=== PATIENT | male | born 1960 | race Caucasian/White ===

== ENCOUNTER 2020-09-29 21:23 | Inpatient (IN) | payer MEDICAID ==
[~2020-09-29] VITALS: Ht 167.6 cm; Wt 63.5 kg
[2020-09-29 21:47] VITALS: Ht 167.6 cm; Wt 63.5 kg
--- NOTE | 2020-09-29 22:29 | NUR ---
PATIENT BROUGHT IN BY EMS WITH REPORT OF AMS AND ETOH. PATIENT IS ORIENTED TO NAME AND , OTHERWISE CONFUSED.
[2020-09-29 23:26] LABS: BASOPHIL % 0.9 % (0-2)
[2020-09-29 23:27] LABS: PLATELET COUNT 78 x10^3mcL (130-400); RED CELL DISTRIBUTION WIDTH 16.6 % (11.5-14.5)
[2020-09-29 23:49] LABS: ALBUMIN 3.5 g/dL (3.4-5.0); ALKALINE PHOSPHATASE 136 U/L (46-116); ALT/SGPT 144 U/L (16-63); AST/SGOT 342 U/L (15-37); CALCIUM 8.5 mg/dL (8.5-10.1); CARBON DIOXIDE 32.7 mmol/L (21-32); CHLORIDE SERUM 99 mmol/L (98-107); CREATININE SERUM 0.9 mg/dL (0.7-1.3); GFR1 > 60 mL/min; GLUCOSE SERUM 204 mg/dL (74-106); LIPASE 690 IU/L (73-393); SODIUM SERUM 143 mmol/L (136-145); TOTAL PROTEIN, SERUM 8.2 g/dL (6.4-8.2)
[2020-09-29 23:52] LABS: POTASSIUM SERUM 2.7 mmol/L (3.5-5.1)
--- NOTE | 2020-09-30 | NUR ---
PATIENT MEDICATED WITH ORAL POTASSIUM FOR LOW POTASSIUM LEVEL.
--- NOTE | 2020-09-30 01:15 | NUR ---
NASAL SWAB WAS DONE FOR COVID AG/NIKHIL.
--- NOTE | 2020-09-30 01:50 | NUR ---
REPORT WAS GIVEN TO OMID. PATIENT TRANSPORTED TO ROOM 246 B.
--- NOTE | 2020-09-30 02:00 | NUR ---
ADMITTED PT FROM ER FOUND ON THE STREET DRUNK AND SOMEONE CALLED [facility] AND C/O CHESTPAIN.PT APPEARS DROWSY BUT AROUSABLE.ANSWERS QUESTIONS APPROPRIATELY.CO 4/10 TO PRESSURE LIKE PAIN POINTING TO HIS L CHEST.PLACED ON TELE MONITOR # 14 WITH READING NSR.BP 118/72 MMHG,HR 96.PT UNKEPT BILATERAL FEET DRY SCALY WITH DRIED DIRT.SMELLS ALCOHOL AND VERBALIZED "ONLY A LITTLE OF VODKA".ADMISSION CARE RENDERED,WILL PLACE ON SEIZURE PRECAUTION.WILL PAD ALL RAILS.BEDALARM ON.WILL CONTINUE TO MONITOR.
--- NOTE | 2020-09-30 02:15 | NUR ---
PATIENT TRANSPORTED TO ROOM 246B. BELONGING LIST COMPLETED. NO CEEL PHONE , HAS A YELLOW/GOLD RING ON THE LEFT HAND.
[2020-09-30 02:23] VITALS: BP 118/72
[2020-09-30 04:32] LABS: UA SPECIFIC GRAVITY 1.025 (1.005-1.035); microscopic required? YES; urine erythrocyte 2+ (NEGATIVE)
--- NOTE | 2020-09-30 04:41 | NUR ---
ON SEIZURE PRECAUTIONS.PADDED RAILS IN PLACED,NO WITHDRAWEL SYMPTOMS NOTED.POTASSIUM CHLORIDE 40 MEQ PO GIVEN AND WELL TOLERATED.DENIES CHESTPAIN ATN THIS TIME,NS @ 100 ML INFUSING .ALL NEEDS MET.BEDALARM ON AT ALL TIMES.WILL CONTINUE TO MONITOR.
[2020-09-30 05:00] LABS: AMPHETAMINE QUAL UR NONE DETECTED (See below)
[2020-09-30 05:15] VITALS: BP 140/89
--- NOTE | 2020-09-30 07:10 | NUR ---
RECEIVED REPORT FROM MARKETING PRODUCER RN. PT IN BED AWAKE, VERBALLY RESPONSIVE WITH DISORIENTATION. ON RA, NO ACUTE RESPIRATORY DISTRESS NOTED. ON TELE 14 NSR 94HR. DENIES CHEST PAIN/PRESSURE AT THIS TIME. IV SITE TO RFA WITH NS AT 100CC/HR. DENIES PAIN OR DISCOMFORT AT THIS TIME. SIDE RAILS UP X2 FOR SAFETY, INSTRUCTED TO USE CALL LIGHT WHEN NEEDED ASSISTANCE. CALL LIGHT WITHIN REACH. WILL CONTINUE TO MONITOR.
[2020-09-30 07:23] LABS: BASOPHIL % 1.7 % (0-2)
[2020-09-30 07:40] LABS: PLATELET COUNT 63 x10^3mcL (130-400); RED CELL DISTRIBUTION WIDTH 16.1 % (11.5-14.5)
[2020-09-30 07:57] LABS: MAGNESIUM 1.6 mg/dL (1.8-2.4); PHOSPHOROUS 1.6 mg/dL (2.5-4.9)
[2020-09-30 07:58] LABS: CHOLESTEROL/HDL RATIO 4.3
[2020-09-30 08:40] LABS: CALCIUM 7.9 mg/dL (8.5-10.1); CARBON DIOXIDE 31.4 mmol/L (21-32); CHLORIDE SERUM 101 mmol/L (98-107); CREATININE SERUM 0.7 mg/dL (0.7-1.3); GFR1 > 60 mL/min; GLUCOSE SERUM 132 mg/dL (74-106); MAGNESIUM 1.6 mg/dL (1.8-2.4); PHOSPHOROUS 1.5 mg/dL (2.5-4.9); SODIUM SERUM 142 mmol/L (136-145)
[2020-09-30 08:42] LABS: BILIRUBIN DIRECT 1.61 mg/dL (0.0-0.2); BILIRUBIN TOTAL 2.2 mg/dL (0.20-1.00); TOTAL PROTEIN, SERUM 6.9 g/dL (6.4-8.2)
[2020-09-30 08:45] LABS: ALBUMIN 3.1 g/dL (3.4-5.0)
[2020-09-30 08:55] VITALS: BP 116/79
[2020-09-30 13:28] VITALS: BP 124/68
[2020-09-30 16:17] VITALS: BP 140/70
--- NOTE | 2020-09-30 18:05 | NUR ---
FOUND PATIENT IN BED WITH IV SITE DISLODGED. PATIENT STATED HE DIDNT KNOW WHAT HAPPENED. DISLODGED IV CATH INTACT. REINSERTED NEW IV SITE TO RFA 20G CONTINUE WITH IV FLUIDS 100CC/HR.
--- NOTE | 2020-09-30 19:25 | NUR ---
PT IN BED AWAKE, ALERT, ABLE TO VERBALIZE NEEDS. ON TELE 14 NSR. DENIES CHEST PAIN/PRESSURE. IV SITE TO RFA WITH NS AT 100CC/HR. NO ACUTE RESPIRATORY DISTRESS. DENIES PAIN OR DISCOMFORT AT THIS TIME. BED IN LOWEST POSITION. CALL LIGHT WITHIN REACH. ENDORSE CARE TO INCOMING RN.
--- NOTE | 2020-09-30 19:50 | NUR ---
PT RECEIVED IN BED, APPEARS TO BE LETHARGIC BUT EASILY AROUSABLE. A/O TO PERSON ONLY, ABLE TO FOLLOW COMMANDS, ABLE TO MAKE NEEDS KNOWN, PT SPEECH CLR. RESP IS EVEN AND UNLABORED, SPO2 100% ON RA, LUNGS SOUNDS CLR BILATERALLY. RADIAL AND PEDAL PULSES PRESENT, NO EDMA NOTED. ON TELE # 14 ST, NO C/O CHEST PAIN. ACTIVE BS PRESENT X4 QUADRANTS, NO C/O NVD. VOIDS FREELY NO DISCOMFORT NOTED. SKIN IS WARM, DRY AND INTACT, IV FOUND ON THE BED, PT STATES HE DONT REMEMBER REMOVING IT. BED TO LOWEST POSITION, CALL LIGHT WITHIN REACH, WILL CONT TO MONITOR PT FOR CHANGES IN CONDITION.
[2020-09-30 20:10] VITALS: BP 122/66
--- NOTE | 2020-09-30 22:22 | NUR ---
PT HAS ELEVATED TEMP AT 100.6 AND HAVING CHILLS, DR. GAYLE MADE AWARE AND REQUESTED TYLENOL. PT PROVIDED COOLING MEASURES.
--- NOTE | 2020-09-30 23:46 | NUR ---
RE-CHECKED TEMP, 99.8. CONT TO PROVIDED PT COOLING MEASURES, CONT TO MONITOR PT FOR CHANGES IN CONDITION.
--- NOTE | 2020-10-01 01:30 | NUR ---
FOUND PT ON THE SIDE OF THE BED KNEELING DOWN, TRYING TO GET BACK ON THE BED. NO IMMEDIATE BODY INJURY, NO BLEEDING NOTED. PT ASSISTED BACK IN BED WITH THE HELP OF 2 RN'S. VS TEMP 100.8, BP 147/83, HR 128, 96% RA RR 22, 0/[address] GAYLE[address] BED TO LOWEST POSITION, CALL LIGHT WITHIN REACH, WILL CONT TO MONIOTR FOR CHANGES IN CONDITION.
--- NOTE | 2020-10-01 01:40 | NUR ---
FUTHER ASSESMENT DONE, PURPLE DISCOLORATION ON LEFT BUTTOCKS AND LEFT HIP NOTED. LEFT ELBOW NOTED WITH SOME REDNESS. PT STATES HE HAS WHITE 10/10 AND FEELS DIZZY. PT MADE COMFORTABLE IN BED, BED TO LOWEST POSITION, CALL LGHT WITHIN REACH, REMINDED THE PT TO USE THE CALL LIGHT IF HELP IS NEEDED. URINAL WITHIN REACH. SPOKE WITH DR. BONILLA AND REPORTED THE INCIDENT.
--- NOTE | 2020-10-01 01:50 | NUR ---
PT SEEN AND EXAMINED BY DR. BONILLA, ALSO MADE AWARE OF PT'S ELEVATED HR AND TEMP.
--- NOTE | 2020-10-01 02:15 | NUR ---
RECEIVED NEW ORDER FOR LEFT HIP XRAY, AND HEAD CT. NEW ORDER NOTED AND ACKNOWLEDGED.
--- NOTE | 2020-10-01 02:32 | NUR ---
PT WENT DOWN TO RADIOLOGY FOR LEFT HIP XRAY AND HEAD CT VIA HOSPITAL BED ACCOMPANIED BY 2 RADIOLOGY STAFF.
--- NOTE | 2020-10-01 03:15 | NUR ---
PT CAME BACK FROM CT AND XRAY. NO C/O PAIN, NO ACUTE DISTRESS NOTED. RESP EVEN AND UNLABORED. PT C/O OF BEING TOO COLD, TEMP ELEVATED AT 100.0. HR 132. CONT TO PROVIDED COOLING MEASURE. WILL CONT TO MONIOTR PT FOR CHANGES IN CONDITION.
--- NOTE | 2020-10-01 05:28 | NUR ---
PT IN BED HAVING C/O CHEST PAIN. VS TAKEN TEMP 100.2, BP 144/90, HR 128, RR 20, 94% ON RA. DR. BONILLA MADE AWARE AND RECEIVED NEW ORDER OF STAT ECG. PT MADE COMFORTABLE IN BED, ADMINISTERED 02 AT 2L VIA NC. WILL CONT TO MONIOTR PT FOR CHANGES IN CONDITION.
[2020-10-01 05:30] VITALS: BP 135/90
--- NOTE | 2020-10-01 06:42 | NUR ---
PT IN BED AWAKE RESTING. NO C/O PAIN, NO ACUTE DISTRESS NOTE. RESP IS EVEN AND UNLABORED, NEEDS ATTENDED AND MET. FREQUENT VISUAL MONITORING RENDERED, CONT ON COOLING MEASURES FOR ELEVATED TEMP OF 100.2. PT'S CHEST PAIN RESOLVED AFTER PROVIDING SUPPELEMENTAL O2 AT 2L VIA NC. HR REMAINED ELEVATED, 115-130'S. DR AWARE OF ELEVATED TEMP AND HR. CONT TO MONITOR AND ENDORSE TO NEXT SHIFT NURSE.
[2020-10-01 06:45] LABS: BASOPHIL % 1.3 % (0-2)
[2020-10-01 07:08] LABS: PLATELET COUNT 43 x10^3mcL (130-400)
--- NOTE | 2020-10-01 07:30 | NUR ---
RECEIVED PT. IN BED A/A/O X2 (PERSON AND PLACE). NO SOB, NO N/V NOTED. PT. DENIES ANY PAIN AT THIS TIME. IVF NS RUNNING AT 100 CC/HR VIA IV SITE AT R HAND. BED IN LOW POS., CALL LIGHT WITHIN REACH. SIDE RAILS UP X3.
[2020-10-01 08:34] VITALS: BP 115/88
[2020-10-01 08:48] LABS: ALKALINE PHOSPHATASE 125 U/L (46-116); ALT/SGPT 119 U/L (16-63); AST/SGOT 303 U/L (15-37); BILIRUBIN TOTAL 3.2 mg/dL (0.20-1.00); CALCIUM 8.5 mg/dL (8.5-10.1); CHLORIDE SERUM 96 mmol/L (98-107); CREATININE SERUM 0.7 mg/dL (0.7-1.3); GFR1 > 60 mL/min; GLUCOSE SERUM 134 mg/dL (74-106); LIPASE 596 IU/L (73-393); MAGNESIUM 1.3 mg/dL (1.8-2.4); PHOSPHOROUS 1.3 mg/dL (2.5-4.9); SODIUM SERUM 139 mmol/L (136-145); TOTAL PROTEIN, SERUM 6.6 g/dL (6.4-8.2)
[2020-10-01 09:17] LABS: ALBUMIN 3.3 g/dL (3.4-5.0)
[2020-10-01 09:20] LABS: POTASSIUM SERUM 2.8 mmol/L (3.5-5.1)
--- NOTE | 2020-10-01 09:30 | NUR ---
REPORTED K (2.8), PO4 (1.3), MG (1.3), AND PLATELET (43) TO DR. ROSEN. NO FURTHER ORDER RECEIVED AT THIS TIME.
--- NOTE | 2020-10-01 09:45 | NUR ---
PT. PULLED OUT IV CATH. AT R HAND. NEW IV SITE RESTARTED AT L FA WITH GAUGE #22.
--- NOTE | 2020-10-01 11:00 | NUR ---
DR. ROSEN WAS MADE AWARE THAT PT.'S H.R. HAS BEEN RANGING FROM 120 TO 130 BPM IN THE LAST 2 HRS. NO FURTHER ORDER RECEIVED AT THIS TIME.
[2020-10-01 15:24] VITALS: BP 126/90
[2020-10-01 16:47] VITALS: BP 123/84
--- NOTE | 2020-10-01 18:18 | NUR ---
REMAINS IN STABLE CONDITION AT THIS TIME. WILL CONTINUE TO MONITOR.
--- NOTE | 2020-10-01 19:20 | NUR ---
RECEIVED PATIENT. PATIENT IS O2 SAT 96%. PATIENT DENIES CHEST PAIN AND DISCOMFORT. PATIENT IS RESTING IN BED. BED IN LOW POSITION AND CALL LIGHT WITHIN REACH.
[2020-10-01 20:20] VITALS: BP 117/81
[2020-10-01 21:06] LABS: CALCIUM 9.5 mg/dL (8.5-10.1); CARBON DIOXIDE 30.6 mmol/L (21-32); CHLORIDE SERUM 96 mmol/L (98-107); CREATININE SERUM 0.7 mg/dL (0.7-1.3); GFR1 > 60 mL/min; GLUCOSE SERUM 173 mg/dL (74-106); POTASSIUM SERUM 3.4 mmol/L (3.5-5.1); SODIUM SERUM 135 mmol/L (136-145)
[2020-10-02] VITALS (9 sets, daily range): BP systolic 103–124; BP diastolic 73–90
--- NOTE | 2020-10-02 03:33 | NUR ---
PATIENT IS RESTING IN BED. PATIENT ATTEMPTED TO REMOVE THE IV LINE. AND LEAVE BED WITHOUT ASSISTANCE. PATIENT IS A&OX2 TO PERSON AND PLACE. PATIENT IS CONFUSED AND DOESN'T FOLLOW INSTRUCTIONS. SEZIURE PERCATIONS ARE IN PLACE. PATIENT IS ANXIOUS AND AGITATED GIVEN 1MG ATIVAN. PATIENT DENIES CHEST PAIN. PATIENT DENIES PAIN AND DISCOMFORT. BED IN LOW POSITION AND CALL LIGHT WITHIN REACH.
--- NOTE | 2020-10-02 03:52 | NUR ---
HR SUSTAINING TO 170'S. PT IN BED ANXIOUS AND DISORIENTED. NO C/O PAIN. DR GAYLE MADE AWARE. STAT EKG ORDERED.
--- NOTE | 2020-10-02 04:20 | NUR ---
METOPROLOL 5 MG IVP GIVEN PER ORDER.
--- NOTE | 2020-10-02 04:37 | NUR ---
HR 140'S AFTER MEDICATION. PT IN BED. DENIES CHEST PAIN OR PRESSURE. DR GAYLE MADE AWARE. ORDERED TO RECHECK HR AND CALL MD AFTER 20 MINUTES.
--- NOTE | 2020-10-02 05:25 | NUR ---
2ND DOSE OF METOPROLOL 5 MG IVP GIVEN PER MD ORDER.
--- NOTE | 2020-10-02 05:25 | NUR ---
1L NS IV BOLUS INFUSING PER ORDER.
--- NOTE | 2020-10-02 06:50 | NUR ---
PT AA&O X2 TO PERSON AND PLACE. REORIENTED TO TIME. PT REMAINS ANXIOUS/RESTLESS. PT CONSTANTLY TRIES TO GET OUT OF BED AND PULL OUT LINES/TUBES. PT IS A FALL RISK. CLOSE MONITORING NEEDED. IV TO LFA, NS INFUSING. SAFETY MEASURES MAINTAINED. ALL NEEDS ATTENDED TO. BED IN LOWEST POSITION. SIDE RAILS UP X2. CALL LIGHT WITHIN REACH. WILL ENDORSE CONTINUITY OF CARE TO ONCOMING RN.
--- NOTE | 2020-10-02 07:30 | NUR ---
RECEIEVED PT IN BED ALERT BUT CONFUSE. REORIENTED, ONLY ORIENTED TO NAME. SPEECH IS GARBLED AT TIMES. UNABLE TO FOLLOW SIMPLE COMMANDS. NOTED WITH EPISODES OF ATTEMPTING TO REMOVE GOWN, IV LINES, AND TELE MONITOR. IV SITE TO LFA WITH NS AT 100CC/HR. ON TELE 14 ST. DENIES CHEST PAIN/PRESSURE. ON RA, NO ACUTE RESPIRATORY DISTRESS. CALL LIGHT WITHIN REACH. WILL CONTINUE TO MONITOR.
[2020-10-02 10:10] LABS: CALCIUM 9.2 mg/dL (8.5-10.1); CARBON DIOXIDE 29.8 mmol/L (21-32); CHLORIDE SERUM 103 mmol/L (98-107); CREATININE SERUM 0.8 mg/dL (0.7-1.3); GFR1 > 60 mL/min; GLUCOSE SERUM 147 mg/dL (74-106); POTASSIUM SERUM 3.4 mmol/L (3.5-5.1); SODIUM SERUM 141 mmol/L (136-145)
[2020-10-02 10:15] LABS: ALKALINE PHOSPHATASE 130 U/L (46-116); ALT/SGPT 118 U/L (16-63); AST/SGOT 282 U/L (15-37); BILIRUBIN TOTAL 3.61 mg/dL (0.20-1.00); TOTAL PROTEIN, SERUM 7.2 g/dL (6.4-8.2)
[2020-10-02 10:34] LABS: BASOPHIL % 0.7 % (0-2)
--- NOTE | 2020-10-02 10:50 | NUR ---
MAKING ROUNDS, MADE AWARE OF PATIENT'S MENTAL STATUS, ELEVATED HR, AND CURRENT VITAL SIGNS. PER , GIVE BOLUS 2L NS THEN MAY START LOPRESSORS WHEN B/P IS STABLE. WILL ADMINISTER ORDERED.
[2020-10-02 11:02] LABS: RED CELL DISTRIBUTION WIDTH 16.2 % (11.5-14.5)
[2020-10-02 11:04] LABS: PLATELET COUNT 68 x10^3mcL (130-400)
--- NOTE | 2020-10-02 12:07 | NUR ---
SEEN BY DR ROSEN AGAIN. RECEIVED ORDER FOR 1 X METOPROL 25 MG NOW. KEEP EVENING DOSE SCHEDULED.
--- NOTE | 2020-10-02 13:00 | NUR ---
ADMINISTERED X1 ORDER OF LOPRESSOR 25MG PO ORDERED. CURRENTLY SUSTAINING 160'S HR/MIN. WILL REEVALUATE. B/P-113/85
--- NOTE | 2020-10-02 14:10 | NUR ---
HR CURRENTLY SUSTAINING AT 140'S. DENIES CHEST PAIN/PRESSURE. REORIENT NEEDED. FREQUENT VISUAL CHECKS DONE.
--- NOTE | 2020-10-02 15:45 | NUR ---
NEW ORDER FROM TO MARCH START BILATERAL SOFT WRIST RESTRAINT D/T CONTINOUS ATTEMPT OF GETTING OUT OF BED AND REMOVING TELE/IV LINES. REORIENTED PT NEEDED, UNABLE TO FOLLOW SIMPLE COMMANDS. ORDERS READ BACK AND VERIFIED, NOTED AND CARRIED OUT.
--- NOTE | 2020-10-02 18:37 | NUR ---
PT IN BED WITH EYES CLOSED MUMBLING. EASILY AROUSABLE WITH VERBAL AND TACTILE STIMULI. CONTINUE WITH BILATERAL SOFT WRIST RESTRAINT FOR PULLING ON TELE MONITOR AND IV LINES. MONITORED SKIN INTEGRITY/CIRCULATION Q2HRS. REORIENTED NEEDED, UNABLE TO FOLLOW COMMANDS. ON TELE 14, SUSTAINING 100'S HR AT REST, DENIES CHEST PAIN/PRESSURE. ON RA, NO ACUTE RESPIRATORY DISTRESS. IV SITE TO LFA WITH SCHEDULED NS FLUID. CALL LIGHT WITHIN REACH. WILL ENDORSE CARE TO INCOMING RN.
--- NOTE | 2020-10-02 19:15 | NUR ---
PATIENT RECEIVED. PATIENT IS RESTING IN BED WITH EYES CLSOED. NO SIGN OF RESP DISTRESS. RR 18 UNLABORED BREATHING, CLEAR LUNG SOUNDS. O2 98% ON ROOM AIR. HR 89. PATIENT RESTRAINTS WITHIN NORMAL LIMITS FOR CIRCULATION. WILL ASSESS RESTRAINTS THROUGHOUT THE SHIFT. BED IN LOW POSITION AND CALL LIGHT WITHIN REACH.
--- NOTE | 2020-10-02 19:30 | NUR ---
PATIENT RECEIVED. PATIENT RESTING IN BED WATCHING TV. PATIENT DENIES PAIN AND DISCOMFORT. PATIENT DENIES CHEST PAIN. BED IN LOW POSITION AND CALL LIGHT WITHIN REACH.
--- NOTE | 2020-10-02 21:30 | NUR ---
PATIENT IS RESTING IN BED EYES CLOSED. NO RESP DISTRESS NOTED, RESTRAINTS ARE RELEASED @2100. CIRCULATION WITH NORMAL LIMITS. BED ALARM IS ON, BED IN LOW POSITION AND CALL LIGHT WITHIN REACH.
--- NOTE | 2020-10-02 22:30 | NUR ---
SCHEDULED PO MEDS NOT GIVEN. PT LETHARGIC. RESPONDS TO TACTILE/PAIN STIMULI. BP 124/90, HR 100, RR 18, O2SAT 96% ON ROOM AIR. DR SHABAZZ MADE AWARE. DR CHANEY ASSESSED THE PT. NO NEW ORDERS AT THIS TIME. WILL CONTINUE TO MONITOR.
--- NOTE | 2020-10-03 02:33 | NUR ---
PATIENT IS RESTING IN BED. NO SIGN OF RESP DISTRESS NOTED. EYES CLOSED. O2 99% ON ROOM AIR. HR 105 SINUS TACHYCARDIA. PATIENT AROUSABLE WITH VERBAL. CALL LIGHT WITHIN REACH AND BED IN LOW POSITION.
[2020-10-03 05:20] VITALS: BP 124/84
--- NOTE | 2020-10-03 05:32 | NUR ---
TEMP 100.3 TYLENOL 650MG GIVEN PO.
--- NOTE | 2020-10-03 06:30 | NUR ---
PATIENT TEMP 100.[address] NO DISTRESS NOTED. WILL ENDOURCE TO AM NURSE. PATIENT IS RESTING IN BED EYES OPEN. BED ALARM IS ON, BED IN LOW POSITION AND CALL LIGHT WITHIN REACH.
--- NOTE | 2020-10-03 06:47 | NUR ---
PATIENT IS RESTING IN BED. A&OX2 TO PERSON AND PLACE. ABLE TO FOLLOW SIMPLE COMMANDS. AROUSABLE WIIH VERBAL. FORGETFUL AT TIMES. INSTRUCTED TO CALL FOR HELP. CALL LIGHT WITHIN REACH AND BED IN LOW POSITION. SIDE RAILS PADDED FOR SEZIURE PRECAUTION IN PLACE. WILL ENDOURCE CARE TO AM NURSE.
[2020-10-03 07:36] VITALS: BP 123/88
--- NOTE | 2020-10-03 09:07 | NUR ---
A/O X4, DENIES WHITE, DIZZINESS, SOB OR PAIN. BREATHING EVEN, UNLABORED, NO ACUTE RESP DISTRESS NOTED. LUNG CTA. PERIPHERAL PULSES PALPABLE. NO EDEMA NOTED. LAST BM 10/01, VOID. IV ACCESS TO LFA SALINE LOCK PATENT. IV TO LH INFUSING 100ML/HR INFUSING WELL, WNL. CALL LIGHT WITHIN REACH. BED AT LOWEST POSITOIN. WILL CONTINUE TO MONITOR
--- NOTE | 2020-10-03 10:00 | NUR ---
PT ALERT AND ORIENTED X3, FOLLOW COMMANDS, INSTRUCTED PT NO PULLING IV OUT, HE VERBALIZED UNDERSTANDING. SOFT RESTRAINTS ON BILATERAL WRISTS REMOVED. RESTRAINTS CIRCULATIONA AND SKIN WNL. CALL LIGHT WITHIN REACH. BED AT LOWEST POSITION. WILL CONTINUE TO MONITOR
[2020-10-03 12:16] VITALS: BP 111/76
--- NOTE | 2020-10-03 15:00 | NUR ---
RESTING WITH EYES CLOSED, NO RESP DISTRESS NOTED. IVF NS INFUSING WELL ON LFA IV SITE.
--- NOTE | 2020-10-03 15:52 | NUR ---
PT RESTING IN BED, BREATHING EVEN, UNLABORED, NO ACUTE RESP DISTRESS NOTED. DENIES PAIN, WHITE, SOB. NS INFUSING TO LW IV ACCESS SITE WNL. CALL LIGHT WITHIN REACH. FEBRILE 102F @ 1400, TYPELOL GIVEN, REASSESS AT 1530 TEMP 97.8. SEIZURE PRECAUTION IN PLACE, WILL CONTINUE TO MONITOR.
[2020-10-03 16:31] VITALS: BP 111/76
--- NOTE | 2020-10-03 17:01 | NUR ---
FEBRILE 100.8 @ 1600, TYLENOL WILL NOT DUE UNTIL 2029, COOLING MEASURE GIVEN AT POSTERIOR NECK AND BILATERAL FLANK. BLOOD CULTURE COMPLETED, NO URINE OUTPUT AT THIS TIME. WILL TRY TO COLLECT URINE FOR UA CULTURE MONAE. BREATHING EVEN AND UNLABORED. NO ACUTE RESP DISTRESS NOTED. LATHERGIC. WILL CONTINUE TO MONITOR
--- NOTE | 2020-10-03 19:00 | NUR ---
PT RESTING IN BED. FEBRILE 100.4, COOLING MEASURE IN PLACE. DENIES PAIN, SOB, BREATHING EVEN, UNLABORED. 2 IV ACCESS TO LH INFUSING NS 100ML TO 24G, 22G SALINE LOCK, PATENT. SAFETY MEASURE IN PLACE, CALL LIGHT WITHIN REACH, BED AT LOWEST POSITION, WILL ENDORSE TO CHARGEBACK ANALYST NURSE
--- NOTE | 2020-10-03 19:41 | NUR ---
I HAVE REVIEWED THE DATA COLLECTION BY RN(NAME):ALYSHA POWERS. ENTERED ON (DATE/TIME):10/03/20 7A-7P. I CONCUR WITH THE DATA AND ANY EXCEPTIONS OR COMMENTS ARE LISTED BELOW:
[2020-10-03 19:59] VITALS: BP 91/64
--- NOTE | 2020-10-03 20:00 | NUR ---
RECEIVED PT IN BED SLEEPING BUT EASILY AROUSABLE, ORIENTED X2, CONFUSED AT TIMES. PT APPEARS TO BE LETHARGIC. TELE 14 SHOWS NSR WITH HR AT 90. DENIES CHEST PAIN. LUNG SOUNDS CLEAR. PT ON 2L O2 VIA N/C. NO RESPIRATORY DISTRESS NOTED. BS ACTIVE IN ALL FOUR QUADS. NO ABD PAIN NOTED. ABD IS OBESE. PT IS VOIDING FREELY WITH URINAL. PEDAL PULSES PALPABLE. NO EDEMA NOTED. GENERALIZED WEAKNESS NOTED. SEIZURE PRECAUTIONS ENFORCED. SKIN IS CDI. IV TO LEFT HAND INFUSING NS AT 100ML/HR, SITE PATENT. SHIFT ASSESSMENT COMPLETED. CALL LIGHT WITHIN REACH. BED IS IN LOWEST POSITION. WILL CONTINUE TO MONITOR CLOSELY.
--- NOTE | 2020-10-04 | NUR ---
PT SLEEPING WELL WITH EYES CLOSED. IVF ONGOING. NO RESPIRATORY DISTRESS NOTED. SEIZURE PRECAUTIONS REMAIN IN PLACE. ALL NEEDS TENDED TO. WILL CONTINUE TO MONITOR CLOSELY.
[2020-10-04 00:13] LABS: microscopic required? NO
[2020-10-04 00:32] LABS: UA SPECIFIC GRAVITY 1.015 (1.005-1.035); urine erythrocyte NEGATIVE (NEGATIVE)
[2020-10-04 05:03] VITALS: BP 128/87
[2020-10-04 07:04] LABS: BASOPHIL % 0.3 % (0-2)
[2020-10-04 07:21] LABS: CARBON DIOXIDE 28.4 mmol/L (21-32); CHLORIDE SERUM 103 mmol/L (98-107); CREATININE SERUM 0.6 mg/dL (0.7-1.3); GFR1 > 60 mL/min; GLUCOSE SERUM 102 mg/dL (74-106); MAGNESIUM 1.5 mg/dL (1.8-2.4); PLATELET COUNT 84 x10^3mcL (130-400); POTASSIUM SERUM 3.2 mmol/L (3.5-5.1); RED CELL DISTRIBUTION WIDTH 17.6 % (11.5-14.5); SODIUM SERUM 139 mmol/L (136-145)
--- NOTE | 2020-10-04 07:30 | NUR ---
PT SLEPT WELL THROUGH OUT THE NIGHT. NO DISTRESS NOTED. ALL DUE MEDS GIVEN ORDERED. CALL LIGHT WITHIN REACH. BED IS IN LOWEST POSITION. REPORT GIVEN TO ELIEZER WHO WILL ASSUME PLAN OF CARE.
--- NOTE | 2020-10-04 08:17 | NUR ---
SEEN RESTING WITH EYES CLOSED, NO RESP DISTRESS NOTED. TELE# [address] HR=99. NO ANY SIGNS OF PAIN. GEN BODY WEAKNESS. ON REGULAR DIET. INCONTINENCE AT TIMES. IVF NS INFUSING WELL AT 100ML/HR ON LT HAND SITE. SEIZURE PRECAUTION MAINTAINED. SIDERAILS UP X2 WITH PADDED UP. WILL CONTINUE TO MONITOR.
[2020-10-04 08:20] VITALS: BP 141/91
--- NOTE | 2020-10-04 10:06 | NUR ---
SEEN IN BED CRYING STATED FEELING SAD, DENIES PAIN, AM SCHEDULED MEDS GIVEN. EMOTIONAL SUPPORT PROVIDED. IVF NS TO LT HAND SITE INFUSING WELL. WILL CONTINUE TO MONITOR.
[2020-10-04 11:55] VITALS: BP 109/76
[2020-10-04] MEDS ORDERED: METOPROLOL TART25 M1 PO (12:03)
--- NOTE | 2020-10-04 13:00 | NUR ---
SEEN SITTING HIGH [place] POSITION IN BED HAVING LUNCH, ABLE TO FEED SELF, NO ASPIRATION NOTED. MADE AWARE THAT HE WILL BE TRANSFERRED TO SNF AND TIME STUDY ANALYST TIME IS 15:00HRS. PATIENT NODDED HIS HEAD.
--- NOTE | 2020-10-04 13:30 | NUR ---
ATTEMPTED TO CALL [facility] TO GIVE REPORT, THE NURSE IS NOT AVAILABLE STATED NURSE ON LUNCH BREAK AND WILL CALL BACK.
--- NOTE | 2020-10-04 14:36 | NUR ---
REPORT GIVEN TO NURSE DAMIAN AT [facility], PATIENT WILL BE TRANSFERRED TO ROOM 200A.
--- NOTE | 2020-10-04 15:54 | NUR ---
IV CATHETER REMOVED ON LEFT HAND AND LEFT FOREARM, NO ERYTHEMA OR SWELLING TO SITE, DRSG APPLIED. TRANSFER PACKAGE GIVEN TO [facility]. ALL PERSONAL BELONGINGS SENT WITH PATIENT. PICKED UP VIA GURNEY. NO ANY DISTRESS UPON TRANSFER.
== END 2020-10-04 16:00 | DRG 241 ==
LOC: ED 21:23 → DU 09-30 01:10
PROVIDERS: Emergency Medicine; Internal Medicine Cardiovascular Disease; ADMIT Family Medicine; ATTEND Family Medicine
DX: K29.20 Alcoholic gastritis without bleeding (principal); G93.41 Metabolic encephalopathy; K85.20 Alcohol induced acute pancreatitis without necrosis or infection; D69.6 Thrombocytopenia, unspecified; E83.42 Hypomagnesemia; K70.0 Alcoholic fatty liver; I47.1 Supraventricular tachycardia; R74.01 Elevation of levels of liver transaminase levels; F17.210 Nicotine dependence, cigarettes, uncomplicated; E87.6 Hypokalemia; Z20.828 Contact with and (suspected) exposure to other viral communicable diseases; Z59.0 Homelessness; Z79.899 Other long term (current) drug therapy; F10.139 Alcohol abuse with withdrawal, unspecified
CPT/HCPCS: 97110-GP; 97112-GP; 97530-GP; C9113; G0378; G0480; J2060; J3480; J3490; J7030